=== PATIENT | female | born 1995 | race Caucasian/White ===

== ENCOUNTER 2018-11-20 19:40 | Emergency (ER) | payer SELFPAY ==
[~2018-11-20] VITALS: Ht 167.6 cm; Wt 113.6 kg
[2018-11-20 19:57] VITALS: BP 133/81; TEMP 98.7
[2018-11-20 21:25] VITALS: PULSE 80
== END 2018-11-20 21:25 | disposition home or self-care (01) ==
LOC: COL.ER 19:40
DX: S62.665A Nondisplaced fracture of distal phalanx of left ring finger, initial encounter for closed fracture (principal); W18.30XA Fall on same level, unspecified, initial encounter; W23.0XXA Caught, crushed, jammed, or pinched between moving objects, initial encounter; Y92.009 Unspecified place in unspecified non-institutional (private) residence as the place of occurrence of the external cause